=== PATIENT | female | born 1985 | race Hispanic/Latino ===

== ENCOUNTER 2018-04-07 23:08 | Emergency (ER) | payer MEDICAID, OTHER ==
[2018-04-07] MEDS ORDERED: OCTYL 2-CYANOACRYLATE 1 EACH TP ONE (23:42)
[2018-04-07 23:47] LABS: APPEARANCE,URINE Cloudy (CLEAR); BILIRUBIN,URINE Negative (NEGATIVE); COLOR,URINE Yellow (YELLOW); GLUCOSE, URINE (UA) 500 mg/dL (NEGATIVE); KETONES,URINE Trace mg/dL (NEGATIVE); LEUKOCYTE ESTERASE ,URINE Negative (NEGATIVE); NITRATE,URINE Negative (NEGATIVE); OCCULT BLOOD,URINE Negative (NEGATIVE); PH,URINE 5.5 (5.0-8.0); PROTEIN,URINE 300 (NEGATIVE)
[2018-04-07 23:50] LABS: HCG,QUAL RESULT NEGATIVE (NEGATIVE)
[2018-04-07 23:53] LABS: BACTERIA,URINE None Seen /HPF (None Seen); CALCIUM OXALATE CRYSTALS,UR Moderate /LPF (None Seen); MUCUS,URINE Few LPF (None Seen); SQUAMOUS EPITHELIAL CELL,UR Few /HPF (0-2)
[2018-04-07 23:55] LABS: AMPHET/METH SCREEN,URINE NEGATIVE (NEGATIVE); BARBITURATE SCREEN, URINE NEGATIVE (NEGATIVE); BENZODIAZEPINES SCREEN,URINE POSITIVE (NEGATIVE); CANNABINOID SCREEN,URINE NEGATIVE (NEGATIVE); COCAINE SCREEN,URINE NEGATIVE (NEGATIVE); OPIATE SCREEN,URINE NEGATIVE (NEGATIVE); PHENCYCLIDINE SCREEN,URINE NEGATIVE (NEGATIVE)
[2018-04-08] MEDS ORDERED: ACETAMINOPHEN EXTRA STRENGTH 500 MG TABLET ONE (00:34)
== END 2018-04-08 01:24 | disposition home or self-care (01) ==
LOC: EDH 23:08
DX: S02.82XA Fracture of other specified skull and facial bones, left side, initial encounter for closed fracture (principal); S01.112A Laceration without foreign body of left eyelid and periocular area, initial encounter; M54.5 Low back pain; E11.9 Type 2 diabetes mellitus without complications; Z90.49 Acquired absence of other specified parts of digestive tract; Z98.890 Other specified postprocedural states; Z72.0 Tobacco use; Y04.0XXA Assault by unarmed brawl or fight, initial encounter; Y93.89 Activity, other specified; Y92.89 Other specified places as the place of occurrence of the external cause; Y99.8 Other external cause status
CPT/HCPCS: 70486; 72100; 80305; 81001; 81025

== ENCOUNTER 2024-05-04 21:55 | Emergency (ER) | payer MEDICAID, OTHER ==
[~2024-05-04] VITALS: Ht 147.3 cm; Wt 76.2 kg
[2024-05-04] MEDS: KETOROLAC 15MG/ML VIAL (15MG/ML) ONE (22:38)
[2024-05-04] MEDS: KETOROLAC 15MG/ML VIAL (15MG/ML) IM STA (22:38)
[2024-05-04] MEDS: METHOCARBAMOL 500 MG TABLET PO STA (23:12)
[2024-05-04] MEDS ORDERED: CYCL10TA16 PO (23:51)
[2024-05-05 00:19] VITALS: BP 142/60; PULSE 88; RESP 18; O2SAT 99
== END 2024-05-05 00:26 | disposition home or self-care (01) ==
LOC: EDH 21:55
DX: M54.50 Low back pain, unspecified (principal)
CPT/HCPCS: 99284; 72100; 72170; 73564 ×2; 96372; J1885